=== PATIENT | female | born 1960 | race African-American/Black ===

== ENCOUNTER 2018-12-29 08:04 | Outpatient (CLI) | payer OTHER ==
[~2018-12-29] VITALS: Ht 182.9 cm; Wt 106.4 kg
--- NOTE | ~2018-12-29 | HEMODYNAMI ---
PATIENT:DEMETRICE SIMPSON MEDICAL RECORD: [id number] : 56 LOCATION:[facility] ADMISSION DATE: 12/29/18 Generatedon:12/29/201810:40 Patient name: DEMETRICE SIMPSON Patient #: [id number] SSN: D OB: 1960 Date of study: 12/29/2018 Page: Of Hemodynamic Procedure Report Patient Data Patient Demographics Procedure consent was obtained First Name: DEMETRICE Gender: Female Last Name: CALVIN : 1960 Middle Initial: R Age: 58 year(s) Patient #: [id number] Race: Black Additional ID: [id number] Contact details [address]: [address] [place] [address] State: [place] City: [place] Zip code: [address] Admission Admission Data Admission Date: 12/29/2018 Admission Time: 8:04 Admit Source: Other Height (in.): 72.05 BSA: 2.28 (m2) Height (cm.): 183 BMI: 31.65 (kg/m2) Weight (lbs.): 233.69 Weight (kg.): 106 Lab Results Lab Result Date: 12/29/2018 Lab Result Time: 0:00 Biochemistry Name Units Result Min Max BUN mg/dl 21 --(----)-* 7 18 Creatinine mg/dl 1.1 --(--*-)-- 0.6 1.3 CBC Name Units Result Min Max Hemoglobin g/dl 11.2 *-(----)-- 13.5 17.5 Procedure Procedure Types Cath Procedure Diagnostic Procedure LHC LHC w/Coronaries Procedure Description Procedure Date Procedure Date: 12/29/2018 Procedure Start Time: 10:27 Procedure End Time: 10:38 Procedure Staff Name Function Richard Herrera MD Performing Physician Ann Marie Sauer RT Monitor Tootie Martin RT Scrub Salvatore Moser RT Scrub Judith Aviles RN Nurse Procedure Data Cath Procedure Fluoroscopy Diagnostic fluoroscopy Total fluoroscopy Time: 1.8 time: 1.8 min min Diagnostic fluoroscopy Total fluoroscopy dose: 702 dose: 702 mGy mGy Contrast Material Contrast Material Type Amount (ml) Isovue 300 51 Entry Location Entry Primary Successful Side Size Upsize Upsize Entry Closure Succes sful Closure Location (Fr) 1 (Fr) 2 (Fr) Remarks Device Remarks Femoral Right 5 Fr Exoseal artery Estimated blood loss: 5 ml Diagnostic catheters Device Type Used For End Catheter Placement MULTIPACK JL 4.0 5Fr Left Coronary catheter Angiography MULTIPACK 3DRC 5Fr Right Coronary catheter Angiography MULTIPACK Pigtail 5 Fr LV Angiography catheter Procedure Complications No complications Procedure Medications Medication Administration Route Dosage 0.9% NaCl I.V. 100 ml/hr Oxygen etCO2 Nasal cannula 2 l/min Lidocaine 2% added to field 20 Heparin Flush Bag added to field 2 bags (1000units/500ml NS) Versed I.V. 2 mg Fentanyl I.V. 50 mcg Fentanyl I.V. 50 mcg Hemodynamics Rest BSA: 2.28 (m2) HGB: 11.2 (g/dl) O2 Consumption: Estimated: 205.08 (ml/min) O2 Co nsumption indexed: Estimated:89.95 (ml/min/m) Heart Rate: 57 (bpm) Pressure Samples Time Site Value (mmHg) Purpose Heart Use Rate(bpm) 10:35 LV 138/14,28 Snapshot 66 10:35 AO 139/77(104) Pullback 58 10:35 LV 156/16,54 Pullback 58 Gradients Valve Time Site 1 Site 2 Mean SEP/DFP Peak To Heart Use (mmHg) (sec/min) Peak Rate (mmHg) (bpm) Aortic 10:35 LV AO 10 20 17 58 156/16,54 139/77(104) Calculations Valve P-P Mean Valve Index Valve Source Name Gradient Area Flow (cm2) Aortic 17 10 17 10 Snapshots Pre Cath Intra NCS Post Cath Vital Signs Time Heart Resp SPO2 etCO2 NIBP (mmHg) Rhythm Pain Sedation Rate (ipm) (%) (mmHg) Status Level (bpm) 10:15:14 54 10 100 37.2 165/88(138) SB 0 (11) 10(A) , No pain 10:19:26 55 10 100 35 145/87(108) SB 0 (11) 10(A) , No pain 10:23:40 55 16 100 35 122/75(90) SB 0 (11) 9(A) , No pain 10:28:37 53 16 100 38.8 128/77(95) SB 0 (11) 9(A) , No pain 10:32:42 66 14 98 37.2 116/75(91) SB 0 (11) 9(A) , No pain 10:36:44 55 17 100 35.8 114/73(91) SB 0 (11) 10(A) , No pain Medications Time Medication Route Dose Verified Delivered Reason Notes Eff ectiveness by by 10:15:19 0.9% NaCl I.V. 100 Richard Judith used for ml/hr Javier Aviles software engineer web applications 10:15:25 Oxygen etCO2 2 Richard Judith used for Nasal l/min Javier Aviles procedure cannula RN 10:15:29 Lidocaine 2% added 20ml Richard Richard for local to vial Javier Herrera MD anesthetic field 10:15:34 Heparin Flush added 2 Richard Richard used for Bag to bags Javier Herrera MD procedure (1000units/500ml field NS) 10:16:56 Fentanyl I.V. 50 Richard Judith for mcg Javier Aviles sedation RN 10:16:56 Versed I.V. 2 mg Richard Judith for Javier Aviles sedation RN 10:21:37 Fentanyl I.V. 50 Richard Judith for mcg Javier Aviles sedation marriage and family teacher Log Time Note 9:55:32 Salvatore Moser RT(R) sent for patient. Start room use. 9:55:35 Time tracking: Regular hours (M-F 7:00 - 5:00) 9:55:45 Plan of Care:Hemodynamics will remain stable., Cardiac rhythm will remain stable., Comfort level will be maintained., Respiratory function will remain adequate., Patient/ family verbilizes understanding of procedure., Procedure tolerated without complication., Recovers from procedure without complications.. 9:57:31 Lab Result : Hemoglobin 11.2 g/dl 9:57:31 Lab Result : Creatinine 1.1 mg/dl 9:57:31 Lab Result : BUN 21 mg/dl 9:57:36 Admit Source: Other 9:57:41 Patient Height : 72.05 inches 9:57:45 Patient Weight : 233.69 lbs 9:58:09 2) 60-89 Mildly reduced kidney function, and other findings (as for stage 1) point to kidney disease. 9:58:46 Maximum allowable contrast does (3.7 X eGFR X 0.75)180 ml. 10:07:01 Patient received from Pre/Post Procedure Room to CCL 2 Alert and oriented. Tansferred to table in Supine position. 10:07:03 Warm blankets applied, and birgit hugger turned on for patient comfort. 10:07:03 Correct patient and procedure confirmed by team. 10:07:05 Signed procedure consent form obtained from patient. 10:07:06 ECG and BP/O2 sat monitors applied to patient. 10:13:29 Vital chart was started 10:13:31 Baseline sample Acquired. 10:13:35 Rhythm: sinus rhythm 10:13:36 Full Disclosure recording started 10:13:39 H&P Date Dictated: 12/29/2018 Within 30 days and on chart., H&P Addendum completed by physician on day of procedure. (MUST COMPLETE FOR ALL OUTPATIENTS). 10:14:16 Pre-procedure instructions explained to patient. 10:14:16 Pre-op teaching completed and patient verbalized understanding. 10:14:18 Family in waiting room. 10:14:20 Patient NPO since Midnight. 10:14:21 Is the patient allergic to Iodine/contrast media? No. 10:14:22 Was the patient premedicated? No 10:14:24 Is patient on blood thinner?No 10:14:25 Patient diabetic? Yes. 10:14:26 If diabetic: On Metformin? No 10:14:29 Previous problem with sedation/anesthesia? No ? 10:14:33 Snore? Yes 10:14:34 Sleep apnea? No 10:14:36 Deviated septum? No 10:14:36 Opens mouth fully? Yes 10:14:37 Sticks out tongue? Yes 10:14:39 Airway obstruction? No ? 10:14:41 Dentures? No ? 10:14:45 Pre procedure: right dorsailis pedis pulse 2+ Normal; easily identifiable; not easily obliterated 10:14:46 Pre procedure: left dorsailis pedis pulse 2+ Normal; easily identifiable; not easily obliterated 10:14:48 Patient pain scale 0/10 ?. 10:15:11 IV patent on arrival in right forearm with 0.9% NaCl at KVO. 10:15:13 Lab results completed and on chart. 10:15:18 Right groin area was prepped with chlora-prep and draped in sterile fashion 10:15:18 Alarms reviewed by R. N. 10:15:19 0.9% NaCl 100 ml/hr I.V. was administered by Judith Aviles RN; used for procedure; 10:15:19 Sharps counted by scrub and verified by R.N. 10:15:20 Physician arrived 10:15: --------ALL STOP TIME OUT------ 10:15:21 Final Timeout: patient, procedure, and site verified with staff and physician. All members of the team are in agreement. 10:15:23 Right groin site verified by team. 10:15:25 Oxygen 2 l/min etCO2 Nasal cannula was administered by Judith Aviles RN; used for procedure; 10:15:27 Fire Safety Assessment: A--An alcohol-based skin anteseptic being used preoperatively., C--Open oxygen or nitrous oxide is being used., D--An ESU, laser, or fiber-optic light is being used. 10:15:29 Lidocaine 2% 20ml vial added to field was administered by Richard Herrera MD; for local anesthetic; 10:15:30 Physical assessment completed. ASA score P 2 - A patient with mild systemic disease as per Richard Herrera MD. 10:15:34 Heparin Flush Bag (1000units/500ml NS) 2 bags added to field was administered by Richard Herrera MD; used for procedure; 10:15:35 Sedation plan: IV Moderate Sedation Medication:Versed, Fentanyl 10:15:39 Use device set Femoral Dx 10:15:41 ACIST Syringe (70231) opened to sterile field. 10:15:41 Bag Decanter () opened to sterile field. 10:15:42 Medline Cath Pack ([id number]) opened to sterile field. 10:15:43 ACIST Hand Control (88361) opened to sterile field. 10:15:44 ACIST Manifold (72402) opened to sterile field. 10:15:45 DIAGNOSTIC Multipack 5Fr catheter set ([id number]) opened to sterile field. 10:15:47 Tegaderm 4 x 4 (1626W) opened to sterile field. 10:15:48 SHEATH 5FR [place] (OGO348) opened to sterile field. 10:15:48 EMERALD Guide Wire (013-650) opened to sterile field. 10:16:56 Versed 2 mg I.V. was administered by Judith Aviles RN; for sedation; 10:16:56 Fentanyl 50 mcg I.V. was administered by Juidth Aviles RN; for sedation; 10:21:37 Fentanyl 50 mcg I.V. was administered by Judith Aviles RN; for sedation; 10:26:46 Procedure started. 10:27:08 Local anesthetic to right femoral artery with Lidocaine 2% by Richard Herrera MD.INITIAL ACCESS ONLY 10:27:23 A 5 Fr sheath was inserted into the Right Femoral artery 10:28:06 A MULTIPACK JL 4.0 5Fr catheter was advanced over the wire and used for Left Coronary Angiography. 10:28:38 LCA angiography performed. 10:28:40 Injector settings: Ml/sec: 3, Volume: 6, 10:30:20 Catheter removed. 10:30:36 A MULTIPACK 3DRC 5Fr catheter was advanced over the wire and used for Right Coronary Angiography. 10:32:11 RCA angiography performed. 10:32:14 Injector settings: Ml/sec: 3, Volume: 6, 10:32:43 Catheter removed. 10:34:00 A MULTIPACK Pigtail 5 Fr catheter was advanced over the wire and used for LV Angiography. 10:35:09 LV hemodynamics recorded. 10:35:17 LV gram done using LEVINE 10:35:21 Injector settings: Ml/sec: 5, Volume: 15, 10:35:28 EF : 50 % 10:36:15 Catheter removed. 10:36:17 EXOSEAL 5Fr (EX500) opened to sterile field. 10:36:44 Sheath removed intact; hemostasis achieved with Exoseal to the Right Femoral artery. 10:36:51 Procedure ended.(Physican Out) 10:37:02 Fluoroscopy time 01.80 minutes. 10:37:06 Fluoroscopy dose: 702 mGy 10:37:06 Flurop Dose total: 702 10:37:11 Contrast amount:Isovue 300 51ml. 10:37:13 Sharps counted by scrub and verified by R.N. 10:37:20 Insertion/operative site no bleeding no hematoma. 10:37:23 Post-op/insertion site Right Femoral artery dressed using a 4 x 4 and Tegaderm. 10:37:26 Post right femoral artery:stable 10:37:28 Post Procedure Pulses reassessed and unchanged 10:37:30 Post procedure rhythm: unchanged. 10:37:33 Estimated blood loss: 5 ml 10:37:34 Post procedure instruction explained to patient.Patient verbalizes understanding. 10:37:35 Patient needs reinforcement of post procedure teaching. 10:37:43 Procedure and supply charges have been captured, reviewed, submitted and are correct. 10:37:43 Procedure and supply charges have been captured, reviewed, submitted and are correct. 10:37:48 Procedure Complication : No complications 10:38:03 Vital chart was stopped 10:38:03 See physician's report for complete and final results. 10:38:06 Report given to Pre/Post Procedure Room. 10:38:09 Patient transfered to Pre/Post Procedure Room with Stretcher. 10:38:11 Procedure ended. 10:38:11 Full Disclosure recording stopped 10:38:15 End room use (Document Last) Device Usage Item Name Manufacture Quantity Catalog Hospital Part Current Minimal L ot# / Number Charge Number Stock Stock Serial# Code ACIST Acist 1 21537 809929 923704 [id number] 20 Syringe Medical (34255) Systems Inc Bag Microtek 1 2001S 436591 75494 400909 5 Decanter Medical Inc. () Medline Medline 1 [id number] 798219 10036 658480 5 Cath Pack ([id number]) ACIST Hand Acist 1 30405 875283 015789 580618 5 Control Medical (21730) Systems Inc ACIST Acist 1 30054 212074 320122 789002 5 Manifold Medical (85803) Systems Inc DIAGNOSTIC Cardinal 1 [id number] 646607 82336 314552 30 MultipParagon Airhe[employer] Technologies 5Fr catheter set ([id number]) Tegaderm 4 3M 1 1626W 756931 847410 540467 5 x 4 (1626W) SHEATH 5FR Terumo 1 [id number] 969725 182242 814510 5 [place] (CEI493) EMERALD Cardinal 1 502-455 816598 260412 260624 5 Guide Wire Rootless (502-455) MULTIPACK Cardinal 1 363990 5 JL 4.0 5Fr Health catheter MULTIPACK Cardinal 1 507632 5 3DRC 5Fr Health catheter MULTIPACK Cardinal 1 361823 5 Pigtail 5 Health Fr catheter EXOSEAL 5Fr Cardinal 1 EX500 271092 263134 800228 10 (EX500) Health Signature Audit [place] Stage Time Signature Unsigned Intra-Procedure 12/29/2018 Ann Marie Sauer 10:39:50 AM RT(R) Signatures Performing Physician : Signature : Richard Herrera MD Date : Time : Monitor : Ann Marie Sauer RT Signature : Date : Time : Nurse : Judith Avlies RN Signature : Date : Time : [facility] [address] [address]
[2018-12-29] MEDS ORDERED: ISORDIL40 MG PO (08:18)
[2018-12-29] MEDS ORDERED: MOBIC7.5 MG PO (08:19)
[2018-12-29] MEDS ORDERED: TRIAMTERENE-HCT1 TA2 PO (08:19)
[2018-12-29] MEDS ORDERED: HYDROXYCHLOROQUINE S PO (08:20)
[2018-12-29] MEDS ORDERED: HYDROCODON-ACE1 EA10 PO (08:20)
[2018-12-29] MEDS ORDERED: POTASSIUM99 M1 PO (08:21)
[2018-12-29] MEDS ORDERED: BAYER CHEWABLE81 MG PO (08:22)
[2018-12-29] MEDS ORDERED: TYLENOL PM1 TAB PO (08:22)
[2018-12-29 08:36] VITALS: BP 144/75; Ht 182.9 cm; Wt 106.4 kg
[2018-12-29 08:51] LABS: BASOPHILS 0.4 % (0-2); HEMATOCRIT 34.4 % (36.0-48.0); HEMOGLOBIN 11.2 g/dL (12-16); IMMATURE GRANULOCYTES 0.2 % (0-5); LYMPHOCYTES 41.3 % (15-50); MCH 25.6 pg (26.0-34.0); MCHC 32.6 g/dL (31.0-37.0); MCV 78.7 fL (80.0-100.0); MEAN PLATELET VOLUME 10.2 fL (7.4-10.4); MONOCYTES 5.4 % (2-11); NEUTROPHILS 50.7 % (40-80); PLATELET COUNT 203 10x3/uL (130-400); RBC 4.37 10x6/uL (4.00-5.40); WBC 4.5 10x3/uL (4.8-10.8)
[2018-12-29 08:55] LABS: CALCIUM 8.8 mg/dL (8.5-10.1); CARBON DIOXIDE 31.7 mmol/L (21.0-32.0); CREATININE - SERUM 1.1 mg/dL (0.6-1.3); POTASSIUM - SERUM 3.7 mmol/L (3.5-5.1)
--- NOTE | 2018-12-29 10:57 | NUR ---
RECEIVED PT FROM [employer] SALESPERSON. PT SLEEPING, RESP WITH EASE ON ROOM AIR. DRESING CDI TO RIGHT GROIN, PEDAL PULSES PALPABLE. PT SLEEPING AND AWAKENS EASILY TO VERBAL. HOB IS FLAT, BED LOCKED AND LOW, FRIEND AT BEDSIDE. CALL LIGHT IN REACH.
--- NOTE | 2018-12-29 11:15 | NUR ---
PT SLEEPING, AWAKENS EASILY, DENIES ANY C/O PAIN OR NAUSEA. DRESSING CDI TO RIGHT GROIN, AREA IS SOFT AND NONTENDER. PEDAL PULSES PALPABLE. HOB IS FLAT, VSS.
--- NOTE | 2018-12-29 11:35 | NUR ---
PT SLEEPING, RESP WTIH EASE, VSS, DRESSING CDI, PEDAL PULSES PALPABLE
--- NOTE | 2018-12-29 11:54 | NUR ---
PT SLEEPING, AWAKENS EASILY,. DENIES ANY C/O. DRESSING CDI TO RIGHT GROIN, PEDAL PULSES PALABLE. HOB FLAT, FRIEND AT BEDSIDE.
--- NOTE | 2018-12-29 12:25 | NUR ---
PT ALERT, DENIES ANY C/O. DRESSING CDI TO RIGHT GROIN, AREA IS SOFT AND NONTENDER. PEDAL PULSES PALPABLE. HBO ELEVATED AND SANDWICH AND PO FLUIDS SERVED. FRIEND AT BEDSIDE.
--- NOTE | 2018-12-29 12:44 | NUR ---
DRESSING IS CDI TO RIGHT GROIN, AREA IS SOFT AND NONTENDER. PEDAL PULSES PALPABLE. HOB FULLY ELEVATED. PT EDWAR SANDWICH AND PO FLUIDS WITH NO NAUSEA.
--- NOTE | 2018-12-29 13:18 | NUR ---
DRESSING IS CDI PT HAS TOLERRATED [facility] WITH NO C/O. DC INSTRUCTIONS REVIEWED WITH PT WHO VERBALIZES UNDERSTANDING. IV DC'D [facility]IH CATH INTACT AND PT IS DRESSING FOR DC TO HOME.
--- NOTE | 2018-12-29 13:26 | NUR ---
PT HAS DRESSED FOR DC WITH ASSIST. DENIES ANY C/O. PT ESCORTED TO PRIVATE AUTO VIA WC BY NURSE WITH FRIEND DRIVING HER HOME. PT HAS VOIDED QS.
== END 2018-12-29 13:26 | disposition home or self-care (01) ==
LOC: D.CATH 08:04
PROVIDERS: ATTEND Internal Medicine Cardiovascular Disease
DX: I25.110 Atherosclerotic heart disease of native coronary artery with unstable angina pectoris (principal); Z01.812 Encounter for preprocedural laboratory examination

== ENCOUNTER → 2019-04-24 13:29 | Outpatient (CLI) | payer OTHER ==
[2018-12-29 08:36] VITALS: BMI 31.8
[~2019-04-24 13:29] MED LIST: BAYER CHEWABLE81 MG PO; HYDROCODON-ACE1 EA10 PO; HYDROXYCHLOROQUINE S PO; ISORDIL40 MG PO; MOBIC7.5 MG PO; POTASSIUM99 M1 PO; TRIAMTERENE-HCT1 TA2 PO; TYLENOL PM1 TAB PO
== END | disposition home or self-care (01) ==
LOC: D.LABREF 13:29
PROVIDERS: ATTEND Surgery
DX: L72.3 Sebaceous cyst (principal)